=== PATIENT | female | born 1930 | race Hispanic/Latino ===

== ENCOUNTER 2019-03-08 18:51 | Inpatient (IN) | payer OTHER, SELFPAY ==
[~2019-03-08 18:51] MED LIST: Calcium Chloride 1 GM/10 ML Abboject SYRINGE ONE; Esmolol 100 MG/10 ML VIAL ONE; Heparin 1,000 UNITS/ML VIAL ONE; Iopamidol 370 76% 100 ML VIAL ONE; Lidocaine 1% PF 5 ML VIAL ONE; PHENYLEPHRINE-NS 100 MCG/ML 10 ML SYRINGE ONE; PROPOFOL 200 MG/20 ML VIAL ONE; Rocuronium Bromide 10 MG/ML (10ML VIAL) ONE; Succinylcholine Chloride 20 MG/ML 10 ml SYRINGE FS ONE
[2019-03-08 19:20] LABS: #Basophils 0.1 thou/uL (0.0-0.2); #Eosinphils 0.2 thou/uL (0.0-0.7); #Lymphocytes 4.1 thou/uL (1.20-3.40); #Monocytes 0.8 thou/uL (0.11-0.59); #Neutrophils 13.4 thou/uL (1.40-6.50); %Basophils 0.8 % (0.0-1.0); %Eosinophils 0.8 % (0.0-10.0); %Monocytes 4.3 % (0.0-10.0); %Neutrophils 72.2 % (42.0-75.0); Hemoglobin 13.9 g/dL (12.0-16.0); Mean Corpuscular HGB CONC 33.3 g/dL (32.0-36.0); Mean Corpuscular Hemoglobin 30.8 pg (27.0-31.0); Mean Corpuscular Volume 92.5 fL (78.0-98.0); Mean Platelet Volume 7.9 fL (7.4-10.4); Platelet Count 216 thou/uL (130-400); Red Blood Cell (RBC) Count 4.52 mill/uL (4.20-5.40); White Blood Cell (WBC) Count 18.6 thou/uL (4.8-10.8)
[2019-03-08 19:21] LABS: PTT 24.9 SEC (22.9-36.1)
[2019-03-08 19:22] LABS: Prothrombin Time 13.6 SEC (12.0-14.7)
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
[2019-03-08 19:28] LABS: ALT (SGPT) 46 U/L (8-55); AST (SGOT) 61 U/L (5-34); Albumin 4.2 g/dL (3.4-4.8); Alkaline Phosphatase 90 U/L (40-110); Anion Gap 16 mmol/L (10-20); BUN (Urea Nitrogen) 14 mg/dL (9.8-20.1); Bilirubin, Total 0.4 mg/dL (0.2-1.2); Calc. Creatinine Clearance 0 mL/min (70-130); Calcium 9.2 mg/dL (7.8-10.44); Carbon Dioxide 22 mmol/L (23-31); Chloride 106 mmol/L (98-107); Estimated GFR-MDRD 61; Globulin 2.5 g/dL (2.4-3.5); Potassium 3.2 mmol/L (3.5-5.1); Protein, Total 6.7 g/dL (6.0-8.3); Sodium 141 mmol/L (136-145)
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
[2019-03-08 19:33] LABS: Glucose 177 mg/dL (83-110)
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
[2019-03-08] MEDS ORDERED: Morphine 4 MG/ML VIAL ONE (19:56)
[2019-03-08] MEDS ORDERED: Ondansetron PF 4 MG/2 ML Vial ONE (19:56)
[2019-03-08] MEDS ORDERED: Fentanyl 100 MCG/2 ML VIAL ONE (20:01)
[2019-03-08] MEDS ORDERED: Phenylephrine HCL 10 MG/ML VIAL ONE (20:02)
[2019-03-08 20:31] LABS: Bacteria/HPF None Seen HPF (None Seen); Bilirubin Negative (Negative); Blood, Urine 3+ (Negative); Clarity Clear (Clear); Glucose, Urine (Dipstick) Normal (Negative); Leukocyte Negative Leu/uL (Negative); Nitrite Negative (Negative); Protein, Urine (Dipstick) 30 mg/dL (Neg-Trace); RBC/HPF Greater than 50 HPF (0-3); Squamous Epithelial None Seen HPF (0-3); Urobilinogen Normal mg/dL (Less than 2)
[2019-03-08] MEDS ORDERED: Ondansetron HCl/PF 4 MG/2 ML Vial IVP PRN (20:32)
[2019-03-08] MEDS ORDERED: Sodium Bicarb 50 MEQ/50 ML VIAL ONE (20:48)
[2019-03-08] MEDS ORDERED: Midazolam HCl 2 mg/2 ml Vial ONE (22:11)
[2019-03-08] MEDS ORDERED: Ventilator Sedation Protocol 1 EACH FS ONE (22:50)
[2019-03-08] MEDS ORDERED: D5 1/2 NS w/20 mEq KCL 1,000 ML IV SCH (22:53)
[2019-03-08] MEDS ORDERED: Lorazepam 2 MG/ML VIAL SLOW IVP PRN ×2 (22:53→22:56)
[2019-03-08] MEDS ORDERED: Dextrose 50% Abboject 50 ML SYRINGE SLOW IVP PRN (22:53)
[2019-03-08] MEDS ORDERED: Dextrose 5% in Water 1,000 ML IV PRN (22:53)
[2019-03-08] MEDS ORDERED: fentaNYL Citrate/PF 2,000 MCG in Sodium Chloride 0.9% 60 ML IV SCH (22:56)
[2019-03-08] MEDS ORDERED: Propofol BOLUS 1,000 MG/100 ML VIAL IV PRN (22:56)
[2019-03-08] MEDS ORDERED: DISCONTINUE PREVIOUS NARCOTIC PAIN MEDICATIONS AND BENZODIAZEPINES FS SCH (22:56)
[2019-03-08] MEDS ORDERED: Propofol 1,000 MG/100 ML VIAL IV PRN (22:56)
[2019-03-08] MEDS ORDERED: Fentanyl BOLUS 250 ML IVPB PRN (22:56)
--- NOTE | 2019-03-08 23:06 | RAD ---
EXAM: Single view of the chest HISTORY: Postoperative x-ray after diaphragmatic rupture repair COMPARISON: 03/08/2019 at 6:56 PM FINDINGS: Single view of the chest shows a normal sized cardiomediastinal silhouette. An endotrachea l tube is seen with its tip at the lower border of the clavicles. An NG tube is seen in the stomach. A surgical drain is seen along the left hemidiaphragm. There is been reduction of the hernia eladia contents in the left thoracic cavity below the diaphragm. There may be an area of airspace opacity in the left chest which may represent atelectasis or a pulmonary contusion. No pneumothorax i s appreciated. IMPRESSION: 1. Appropriate position of lines and tubes 2. Possible left pulmonary contusion
[2019-03-08 23:15] LABS: Actual Bicarbonate (HCO3a) 18.2 mEq/L (22-28); CO2 Tension 35.2 mmHg (35.0-45.0); Calcium, Ionized 1.22 mmol/L (1.12-1.30); Carboxyhemoglobin (COHb) 0.5 gm% (0.0-3.0); Hemoglobin (Hb) 9.3 g/dL (12.0-16.0); Potassium - ABG Lab 2.93 mmol/L (3.70-5.30); pH, Arterial 7.33 (7.35-7.45)
[2019-03-08 23:16] LABS: Puncture Site ALINE
--- NOTE | 2019-03-08 23:24 | RAD ---
EXAM: Single view of the chest HISTORY: Central line placement COMPARISON: 03/08/2019 FINDINGS: Single view of the chest shows a normal sized cardiomediastinal silhouette. A left subclav ria central venous catheter seen with its tip in the superior vena cava. The other lines and tubes are unchanged in position. No pneumothorax is seen. There has been improvement in the airspace opaci ty in the left mid thorax. The bones are unremarkable. IMPRESSION: Status post central line placement without evidence of complication.
[2019-03-08 23:25] LABS: #Lymphocytes 0.6 thou/uL (1.20-3.40); #Monocytes 0.7 thou/uL (0.11-0.59); #Neutrophils 10.5 thou/uL (1.40-6.50); %Basophils 0.3 % (0.0-1.0); %Eosinophils 0.3 % (0.0-10.0); %Lymphocytes 5.1 % (21.0-51.0); %Monocytes 6.2 % (0.0-10.0); %Neutrophils 88.2 % (42.0-75.0); Hemoglobin 9.1 g/dL (12.0-16.0); Mean Corpuscular HGB CONC 33.7 g/dL (32.0-36.0); Mean Corpuscular Hemoglobin 31.5 pg (27.0-31.0); Mean Corpuscular Volume 93.4 fL (78.0-98.0); Mean Platelet Volume 7.8 fL (7.4-10.4); Platelet Count 155 thou/uL (130-400); RBC Distribution Width 11.7 % (11.5-14.5); Red Blood Cell (RBC) Count 2.88 mill/uL (4.20-5.40); White Blood Cell (WBC) Count 11.9 thou/uL (4.8-10.8)
[2019-03-08] MEDS ORDERED: Norepinephrine 8 MG in Dextrose 5% in Water 242 ML IVPB PRN (23:27)
[2019-03-08 23:52] LABS: Anion Gap 15 mmol/L (10-20); BUN (Urea Nitrogen) 12 mg/dL (9.8-20.1); Calc. Creatinine Clearance 62 mL/min (70-130); Calcium 8.5 mg/dL (7.8-10.44); Carbon Dioxide 19 mmol/L (23-31); Chloride 112 mmol/L (98-107); Estimated GFR-MDRD 79; Glucose 211 mg/dL (83-110); Sodium 143 mmol/L (136-145)
[2019-03-09] MEDS ORDERED: Potassium Chloride 20 MEQ in Premix Bag 1 BAG IVPB SCH (00:30)
[2019-03-09] MEDS: Potassium Chloride 20 MEQ in Lactated Ringer's 1,000 ML IV SCH ×3 (01:36→19:15)
[2019-03-09] MEDS: Acetaminophen 1,000 MG in Premix Bag 1 BAG IVPB SCH ×3 (01:40→18:13)
[2019-03-09] MEDS ORDERED: Sodium Chloride 0.9% 500 ML IV SCH (02:00)
[2019-03-09 02:26] LABS: Hemoglobin 10.4 g/dL (12.0-16.0); Platelet Count 130 thou/uL (130-400)
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
[2019-03-09 05:09] LABS: Phosphorus 3.7 mg/dL (2.3-4.7)
[2019-03-09 05:11] LABS: Anion Gap 17 mmol/L (10-20); BUN (Urea Nitrogen) 12 mg/dL (9.8-20.1); Calc. Creatinine Clearance 56 mL/min (70-130); Calcium 7.7 mg/dL (7.8-10.44); Carbon Dioxide 17 mmol/L (23-31); Chloride 112 mmol/L (98-107); Estimated GFR-MDRD 70; Glucose 217 mg/dL (83-110); Lipase 135 U/L (8-78); Magnesium 1.5 mg/dL (1.6-2.6); Potassium 3.2 mmol/L (3.5-5.1); Sodium 143 mmol/L (136-145)
[2019-03-09 05:14] LABS: Band 24 % (5-11); Hemoglobin 11.3 g/dL (12.0-16.0); Hypochromia SLIGHT = 6-15 cells (100X) (0-5/hpf); Lymphocytes 3 % (21-51); MDiff Complete? YES; Mean Corpuscular HGB CONC 33.8 g/dL (32.0-36.0); Mean Corpuscular Volume 91.7 fL (78.0-98.0); Mean Platelet Volume 8.1 fL (7.4-10.4); Monocytes 4 % (0-10); Neutrophil 69 % (42-75); Platelet Count 131 thou/uL (130-400); Platelet Morphology Comment Appears Adequate; RBC Distribution Width 12.6 % (11.5-14.5); Red Blood Cell (RBC) Count 3.66 mill/uL (4.20-5.40); White Blood Cell (WBC) Count 15.2 thou/uL (4.8-10.8)
[2019-03-09 06:44] LABS: Actual Bicarbonate (HCO3a) 16.5 mEq/L (22-28); Base Excess (BEa) -9.9 mEq/L (-2.0 to +3.0); CO2 Tension 38.1 mmHg (35.0-45.0); Calcium, Ionized 1.11 mmol/L (1.12-1.30); Carboxyhemoglobin (COHb) 0.3 gm% (0.0-3.0); Hemoglobin (Hb) 9.9 g/dL (12.0-16.0); O2 Tension (PaO2) 92.1 mmHg (> 60.0)
[2019-03-09 06:51] LABS: pH, Arterial 7.25 (7.35-7.45)
[2019-03-09 06:52] LABS: Puncture Site ALINE
[2019-03-09 07:00] LABS: ALV-art Gradient 181.125 (0-20)
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
--- NOTE | 2019-03-09 08:09 | OP ---
DATE OF PROCEDURE: 03/08/2019 PREOPERATIVE DIAGNOSIS: Hemodynamic instability. POSTOPERATIVE DIAGNOSIS: Hemodynamic instability. OPERATION PERFORMED: Placement of left subclavian triple-lumen central line. ANESTHESIA: None. DESCRIPTION OF PROCEDURE: Left upper chest was prepped with ChloraPrep, draped in sterile fashion. Large gauge needle was passed under the clavicle in subclavian vein on the initial pass. Guidewire passed through the needle. Needle was removed, skin was incised, tract was dilated, and 7-[place] triple-lumen catheter was passed over the wire uneventfully. Each of the three lumens aspirated blood freely and was flushed with heparinized saline. Catheter was secured at skin exit site with 3-0 silk suture. Sterile occlusive dressing was applied. Postprocedure chest x-ray documents good position of the catheter. Job ID: [id number]
[2019-03-09] MEDS ORDERED: Magnesium 2 GM/50 ML 4 GM in Premix Bag 1 BAG IVPB SCH (08:30)
[2019-03-09] MEDS ORDERED: Potassium Phosphate 15 MMOL in Sodium Chloride 0.9% 250 ML 100 ML IVPB SCH (08:30)
[2019-03-09 08:35] LABS: Lactic Acid 9.7 mmol/L (0.5-2.2)
[2019-03-09] MEDS ORDERED: Magnesium Sulfate 4 GM in Sodium Chloride 0.9% 250 ML 250 ML IVPB SCH (08:45)
--- NOTE | 2019-03-09 09:12 | RAD ---
PORTABLE CHEST: HISTORY: Respiratory distress. COMPARISON: Prior day's study. FINDINGS: Endotracheal and NG tubes and left subclavian line are all unchanged in position. There is some paren chymal change in the left base. Overall appearance is stable. IMPRESSION: Stable examination. POS: DARIUS
[2019-03-09] MEDS: Famotidine/PF 20 mg/2ml Vial SLOW IVP SCH ×2 (09:20→21:34)
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
[2019-03-09] MEDS: Ondansetron PF 4 MG/2 ML Vial IVP PRN ×2 (12:49→22:01)
[2019-03-09] MEDS: Morphine 2 MG/ML SYRINGE SLOW IVP PRN ×4 (13:19→22:01)
[2019-03-09 17:50] LABS: Lactic Acid 4.1 mmol/L (0.5-2.2)
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
[2019-03-09] MEDS ORDERED: FLU VACC TS2019-20(65YR UP)/PF 180 MCG/0.5 ML SYRINGE IM ONE (21:00)
[2019-03-09] MEDS ORDERED: Prevnar 13-Val Conj/PF 0.5 ML SYRINGE IM ONE (21:00)
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
[2019-03-09] MEDS ORDERED: Haloperidol Lactate 5 MG/ML VIAL SLOW IVP SCH (23:45)
[2019-03-10] MEDS: Acetaminophen 1,000 MG in Premix Bag 1 BAG IVPB SCH ×2 (01:03→23:09)
[2019-03-10] MEDS: Potassium Chloride 20 MEQ in Lactated Ringer's 1,000 ML IV SCH ×4 (01:03→23:43)
[2019-03-10] MEDS ORDERED: Fentanyl 100 MCG/2 ML VIAL SLOW IVP SCH (02:45)
[2019-03-10 05:00] LABS: Band 29 % (5-11); Hemoglobin 11.7 g/dL (12.0-16.0); Lymphocytes 6 % (21-51); MDiff Complete? YES; Mean Corpuscular HGB CONC 34.7 g/dL (32.0-36.0); Mean Corpuscular Hemoglobin 31.2 pg (27.0-31.0); Mean Platelet Volume 9.6 fL (7.4-10.4); Monocytes 2 % (0-10); Neutrophil 63 % (42-75); Platelet Count 89 thou/uL (130-400); Platelet Morphology Comment Appears Decreased; RBC Distribution Width 13.5 % (11.5-14.5); Red Blood Cell (RBC) Count 3.74 mill/uL (4.20-5.40); White Blood Cell (WBC) Count 13.3 thou/uL (4.8-10.8)
[2019-03-10 05:05] LABS: Lactic Acid 4.1 mmol/L (0.5-2.2)
[2019-03-10 05:15] LABS: Anion Gap 12 mmol/L (10-20); BUN (Urea Nitrogen) 17 mg/dL (9.8-20.1); Calc. Creatinine Clearance 57 mL/min (70-130); Calcium 8.5 mg/dL (7.8-10.44); Carbon Dioxide 24 mmol/L (23-31); Chloride 114 mmol/L (98-107); Estimated GFR-MDRD 72; Glucose 141 mg/dL (83-110); Magnesium 2.4 mg/dL (1.6-2.6); Phosphorus 1.9 mg/dL (2.3-4.7); Potassium 3.9 mmol/L (3.5-5.1); Sodium 146 mmol/L (136-145)
[2019-03-10] MEDS ORDERED: Acetaminophen 1,000 MG in Premix Bag 1 BAG IVPB SCH (06:00)
[2019-03-10] MEDS ORDERED: Potassium Phosphate 30 MMOL in Sodium Chloride 0.9% 500 ML IVPB SCH (06:30)
[2019-03-10] MEDS ORDERED: traMADol HCl 50 MG TAB PO PRN ×2 (08:33)
[2019-03-10] MEDS ORDERED: Lorazepam 2 MG/ML VIAL SLOW IVP PRN (08:35)
[2019-03-10] MEDS ORDERED: Lorazepam 2 MG/ML VIAL ONE (08:37)
[2019-03-10] MEDS ORDERED: Famotidine 20 MG TAB PO SCH (09:00)
--- NOTE | 2019-03-10 09:06 | RAD ---
Exam: Chest one view HISTORY:Respiratory distress. Comparison: 03/09/2019 FINDINGS: Lines and tubes: Interval removal endotracheal and nasogastric tube. Stable left-sided central venous catheter. Cardiac silhouette: Normal Aorta: Atherosclerosis Pulmonary vessels: Slightly prominent Costophrenic angles: Clear LUNGS: Patchy interstitial and alveolar opacities in the lung parenchyma. Left upper lobe is adequate ly aerated. Pneumothorax: None Osseous abnormalities: None IMPRESSION: Patchy interstitial and alveolar opacities in the lung parenchyma.
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
[2019-03-10] MEDS: Fentanyl 100 MCG/2 ML VIAL SLOW IVP PRN ×3 (10:50→21:20)
[2019-03-10 11:10] LABS: Actual Bicarbonate (HCO3a) 16.3 mEq/L (22-28); Base Excess (BEa) -8.1 mEq/L (-2.0 to +3.0); Calcium, Ionized 1.16 mmol/L (1.12-1.30); Carboxyhemoglobin (COHb) 0.7 gm% (0.0-3.0); Hemoglobin (Hb) 11.1 g/dL (12.0-16.0); O2 Tension (PaO2) 65.8 mmHg (> 60.0); Potassium - ABG Lab 3.98 mmol/L (3.70-5.30); pH, Arterial 7.35 (7.35-7.45)
[2019-03-10 11:11] LABS: Puncture Site RRA
[2019-03-10] MEDS: Lorazepam 2 MG/ML VIAL SLOW IVP SCH ×3 (11:50→23:10)
[2019-03-10] MEDS: Haloperidol Lactate 5 MG/ML VIAL SLOW IVP SCH ×2 (11:50→18:41)
[2019-03-10] MEDS: Cefepime 1 GM in Sodium Chloride 0.9% 100 ML IVPB SCH ×2 (12:20→21:21)
[2019-03-10] MEDS: Acetaminophen 500 MG TAB PO SCH ×2 (12:23→19:24)
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
[2019-03-10] MEDS: Famotidine/PF 20 mg/2ml Vial SLOW IVP SCH (21:27)
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
[2019-03-11] MEDS: Haloperidol Lactate 5 MG/ML VIAL SLOW IVP SCH ×2 (00:17→05:13)
[2019-03-11] MEDS ORDERED: Amiodarone 150 MG, Admixture Fee 1 EACH in Dextrose 5% in Water 100 ML IVPB SCH (00:30)
[2019-03-11] MEDS ORDERED: Amiodarone 450 MG, Admixture Fee 1 EACH in Dextrose 5% in Water 250 ML IVPB SCH (00:40)
[2019-03-11] MEDS: Fentanyl 100 MCG/2 ML VIAL SLOW IVP PRN ×6 (02:27→23:51)
[2019-03-11] MEDS: Acetaminophen 1,000 MG in Premix Bag 1 BAG IVPB SCH ×4 (05:13→23:00)
[2019-03-11] MEDS: Lorazepam 2 MG/ML VIAL SLOW IVP SCH ×4 (05:13→23:01)
[2019-03-11 06:10] LABS: Band 12 % (5-11); Hemoglobin 10.9 g/dL (12.0-16.0); Hypochromia SLIGHT = 6-15 cells (100X) (0-5/hpf); Lymphocytes 3 % (21-51); MDiff Complete? YES; Mean Corpuscular HGB CONC 32.7 g/dL (32.0-36.0); Mean Corpuscular Hemoglobin 29.9 pg (27.0-31.0); Mean Corpuscular Volume 91.5 fL (78.0-98.0); Mean Platelet Volume 9.6 fL (7.4-10.4); Monocytes 4 % (0-10); Neutrophil 81 % (42-75); Platelet Count 87 thou/uL (130-400); Platelet Morphology Comment Appears Decreased; RBC Distribution Width 13.6 % (11.5-14.5); Red Blood Cell (RBC) Count 3.65 mill/uL (4.20-5.40); White Blood Cell (WBC) Count 11.5 thou/uL (4.8-10.8)
[2019-03-11 06:15] LABS: Anion Gap 14 mmol/L (10-20); BUN (Urea Nitrogen) 19 mg/dL (9.8-20.1); Calc. Creatinine Clearance 56 mL/min (70-130); Calcium 8.3 mg/dL (7.8-10.44); Carbon Dioxide 24 mmol/L (23-31); Chloride 113 mmol/L (98-107); Estimated GFR-MDRD 71; Glucose 106 mg/dL (83-110); Magnesium 2.3 mg/dL (1.6-2.6); Phosphorus 2.6 mg/dL (2.3-4.7); Potassium 4.2 mmol/L (3.5-5.1); Sodium 147 mmol/L (136-145)
[2019-03-11] MEDS ORDERED: Albumin 25% 25 GM/100 ML BOT IVPB SCH (08:29)
[2019-03-11] MEDS ORDERED: Haloperidol Lactate 5 MG/ML VIAL SLOW IVP PRN (09:15)
[2019-03-11] MEDS: Enoxaparin Sodium 40 MG/0.4 ML SYRINGE SC SCH ×2 (09:51→09:52)
--- NOTE | 2019-03-11 09:51 | RAD ---
CHEST 1 VIEW: Date: 03/11/19 COMPARISON: 03/10/19. HISTORY: Ventilated patient. Respiratory distress. FINDINGS: Stable left-sided vascular catheter. Stable cardiac silhouette. There is atherosclerosis of aorta. Pe rsistent interstitial and alveolar infiltrates. Small left-sided pleural effusion. No pneumothorax. IMPRESSION: No significant interval change. POS: [facility]
[2019-03-11] MEDS: Famotidine/PF 20 mg/2ml Vial SLOW IVP SCH ×2 (09:54→20:19)
[2019-03-11] MEDS: Lactated Ringer's 1,000 ML IV SCH ×2 (09:56→20:01)
[2019-03-11] MEDS: Cefepime 1 GM in Sodium Chloride 0.9% 100 ML IVPB SCH ×2 (10:09→21:53)
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
--- NOTE | 2019-03-11 11:01 | PRG ---
DATE OF SERVICE: 03/11/2019 SUBJECTIVE: Ms. Alejo Najera has been on Precedex and was less agitated. Early this morning, it was weaned because her pressures dropped. She breathes very normally when she is on the Precedex, but when she wakes up, she becomes more excitable, becomes more tachypneic. She was on BiPAP overnight. Her fluids were decreased yesterday and anticipation of starting more oral intake. However, that was not possible given the amount of her agitation. OBJECTIVE: VITAL SIGNS: She is afebrile. Her pulse is 101. Her blood pressure is 157/94. Pressures were low earlier this morning into the 60s systolic. : Urine output is adequate, was 679 to the last shift. MIREYA drain is minimal serosanguineous at 60. CHEST: Bilateral coarse breath sounds. HEART: Regular rate. ABDOMEN: Soft. Her dressing is changed. Her midline incision is healing well. The laura are in place. DIAGNOSTIC DATA: Chest x-ray shows mild interstitial alveolar markings. No pneumothorax. No significant effusion. 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 PLAN: We will start IV fluids back given that she is not able to take much by mouth. We will have to discuss nutrition options in the next few days; if not improved, enough to start her on oral intake. Job ID: [id number]
--- NOTE | 2019-03-11 17:21 | EKG ---
Test Reason : STAT Blood Pressure : / mmHG Vent. Rate : 128 BPM Atrial Rate : 129 BPM P-R Int : 000 ms QRS Dur : 122 ms QT Int : 386 ms P-R-T Axes : 000 -59 050 degrees QTc Int : 563 ms Atrial fibrillation with rapid ventricular response Right bundle branch block Left anterior fascicular block Bifascicular block Abnormal ECG Confirmed by DR. Юлия ALEGRIA (3) on 03/11/2019 5:20:41 PM Referred By: KEISHA Confirmed By:DR. Юлия ALEGRIA
[2019-03-11] MEDS: methylPREDNISolone Sod Succ 40 MG VIAL IVP SCH (20:19)
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
[2019-03-12 05:42] LABS: Anion Gap 17 mmol/L (10-20); BUN (Urea Nitrogen) 13 mg/dL (9.8-20.1); Calc. Creatinine Clearance 75 mL/min (70-130); Calcium 8.1 mg/dL (7.8-10.44); Carbon Dioxide 21 mmol/L (23-31); Chloride 108 mmol/L (98-107); Estimated GFR-MDRD Greater than 90; Glucose 125 mg/dL (83-110); Magnesium 1.9 mg/dL (1.6-2.6); Phosphorus 1.6 mg/dL (2.3-4.7); Potassium 2.8 mmol/L (3.5-5.1); Sodium 143 mmol/L (136-145)
[2019-03-12 05:49] LABS: Band 5 % (5-11); Hemoglobin 10.6 g/dL (12.0-16.0); Lymphocytes 4 % (21-51); MDiff Complete? YES; Mean Corpuscular HGB CONC 32.9 g/dL (32.0-36.0); Mean Corpuscular Hemoglobin 29.9 pg (27.0-31.0); Mean Corpuscular Volume 90.8 fL (78.0-98.0); Mean Platelet Volume 9.4 fL (7.4-10.4); Monocytes 3 % (0-10); Neutrophil 88 % (42-75); Platelet Count 94 thou/uL (130-400); Platelet Morphology Comment Appears Decreased; RBC Distribution Width 13.2 % (11.5-14.5); Red Blood Cell (RBC) Count 3.55 mill/uL (4.20-5.40); White Blood Cell (WBC) Count 9.7 thou/uL (4.8-10.8)
[2019-03-12] MEDS ORDERED: Potassium Phosphate 44 MMOL in Sodium Chloride 0.9% 500 ML IVPB SCH (06:00)
[2019-03-12] MEDS: Acetaminophen 1,000 MG in Premix Bag 1 BAG IVPB SCH ×4 (06:02→23:09)
[2019-03-12] MEDS: Lorazepam 2 MG/ML VIAL SLOW IVP SCH ×4 (06:03→23:10)
[2019-03-12] MEDS ORDERED: Potassium Phosphate 30 MMOL in Sodium Chloride 0.9% 500 ML IVPB SCH (06:45)
[2019-03-12] MEDS ORDERED: Magnesium 2 GM/50 ML 2 GM in Premix Bag 1 BAG IVPB SCH (08:30)
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
[2019-03-12] MEDS: Fentanyl 100 MCG/2 ML VIAL SLOW IVP PRN (08:39)
[2019-03-12] MEDS: methylPREDNISolone Sod Succ 40 MG VIAL IVP SCH ×2 (08:41→20:56)
[2019-03-12] MEDS: Famotidine/PF 20 mg/2ml Vial SLOW IVP SCH ×2 (08:41→20:56)
[2019-03-12] MEDS: Enoxaparin Sodium 40 MG/0.4 ML SYRINGE SC SCH (08:41)
[2019-03-12] MEDS: Lactated Ringer's 1,000 ML IV SCH ×2 (08:41→16:13)
[2019-03-12] MEDS: Haloperidol Lactate 5 MG/ML VIAL SLOW IVP PRN (08:59)
--- NOTE | 2019-03-12 09:22 | RAD ---
PORTABLE CHEST: HISTORY: Respiratory distress. COMPARISON: Prior day's study. FINDINGS: Left subclavian line remains unchanged in position. Heart size appears slightly enlarged. Pulmonary vessels remain engorged with increased parahilar lung markings. IMPRESSION: Stable chest. POS: OFF
--- NOTE | 2019-03-12 11:19 | CT ---
CT Abdomen Pelvis W Con: 03/12/2019 8:27 AM CLINICAL INFORMATION: Left diaphragmatic rupture repair COMPARISON: 03/08/2019 TECHNIQUE: Multiple contiguous axial images were obtained and a CT of the abdomen and pelvis with IV contrast. Oral contrast was administered. Coronal and sagittal reformats were performed. FINDINGS: Lower Chest: Small left pleural effusion. Bibasilar atelectasis. Abdomen: Liver: Stable cysts in the liver. Diffuse fatty infiltration of the liver. Bile Ducts: Normal caliber. Gallbladder: Removed Pancreas: Stranding changes are seen adjacent to the tail of the pancreas in the region of the surgic al drain. Spleen: Removed Adrenals: within normal limits. Kidneys: Stable subcentimeter hypodensity in the right kidney likely represents a cyst. Pelvis: Reproductive Organs: No pelvic masses. Ureters: within normal limits. Bladder: Salamanca catheter decompresses the bladder. Peritoneum: No ascites or free air, no fluid collection. Bowel: There is slight prominence of the small bowel loops which may be secondary to postoperative il eus. There is decompression of the colon. Scattered diverticula in the colon. NG tube located in the stomach. Mesentery and Retroperitoneum: No enlarged mesenteric or retroperitoneal lymph nodes. Vessels: Atherosclerotic calcifications. Abdominal Wall: within normal limits. Bones: Degenerative changes in the spine. IMPRESSION: 1. There is stranding changes of the pancreatic tail which may represent focal pancreatitis. This is in the region of the surgical drain and a fistula from the tail the pancreas to the drain is a possibility. The drain output could be tested for amylase/lipase. 2. Postsurgical change from diaphragmatic repair and splenectomy. 3. Hepatic and renal cysts 4. Diverticulosis 5. Fatty liver 6. Prominent small bowel loops may represent postoperative ileus.
[2019-03-12] MEDS: Cefepime 1 GM in Sodium Chloride 0.9% 100 ML IVPB SCH ×2 (11:24→21:01)
[2019-03-12] MEDS ORDERED: Acetaminophen 650 MG/20.3 ML UDCUP PER TUBE SCH (12:00)
[2019-03-12] MEDS ORDERED: traMADol HCl 50 MG TAB PER TUBE SCH (12:00)
[2019-03-12] MEDS ORDERED: traMADol HCl 50 MG TAB PO PRN (12:09)
[2019-03-12 12:15] LABS: Anion Gap 17 mmol/L (10-20); BUN (Urea Nitrogen) 13 mg/dL (9.8-20.1); Calc. Creatinine Clearance 79 mL/min (70-130); Calcium 7.3 mg/dL (7.8-10.44); Carbon Dioxide 15 mmol/L (23-31); Chloride 109 mmol/L (98-107); Estimated GFR-MDRD Greater than 90; Glucose 139 mg/dL (83-110); Phosphorus 3.7 mg/dL (2.3-4.7); Potassium 3.4 mmol/L (3.5-5.1); Sodium 138 mmol/L (136-145)
[2019-03-12] MEDS ORDERED: Ibuprofen 100 MG/5 ML UDCUP PER TUBE SCH (14:00)
[2019-03-12] MEDS ORDERED: Iopamidol 370 76% 50 ML VIAL FS ONE (16:16)
[2019-03-12] MEDS ORDERED: Iopamidol-370 76% 500 ML 1 ML ONE (16:17)
[2019-03-13] MEDS: Fentanyl 100 MCG/2 ML VIAL SLOW IVP PRN ×6 (00:04→22:43)
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
[2019-03-13] MEDS: Lactated Ringer's 1,000 ML IV SCH (04:17)
[2019-03-13 04:44] LABS: Band 6 % (5-11); Hemoglobin 10.4 g/dL (12.0-16.0); Lymphocytes 3 % (21-51); MDiff Complete? YES; Mean Corpuscular HGB CONC 33.1 g/dL (32.0-36.0); Mean Corpuscular Hemoglobin 29.7 pg (27.0-31.0); Mean Corpuscular Volume 89.9 fL (78.0-98.0); Mean Platelet Volume 9.1 fL (7.4-10.4); Monocytes 5 % (0-10); Neutrophil 86 % (42-75); Nucleated RBC 3 % (0); Platelet Count 111 thou/uL (130-400); Platelet Morphology Comment Appears Decreased; RBC Distribution Width 13.1 % (11.5-14.5); Red Blood Cell (RBC) Count 3.48 mill/uL (4.20-5.40)
[2019-03-13 04:47] LABS: Anion Gap 11 mmol/L (10-20); BUN (Urea Nitrogen) 11 mg/dL (9.8-20.1); Calc. Creatinine Clearance 82 mL/min (70-130); Calcium 8.2 mg/dL (7.8-10.44); Carbon Dioxide 26 mmol/L (23-31); Chloride 108 mmol/L (98-107); Estimated GFR-MDRD Greater than 90; Glucose 152 mg/dL (83-110); Magnesium 2.3 mg/dL (1.6-2.6); Phosphorus 1.3 mg/dL (2.3-4.7); Potassium 2.8 mmol/L (3.5-5.1); Sodium 142 mmol/L (136-145)
[2019-03-13] MEDS ORDERED: Potassium Phosphate 30 MMOL in Sodium Chloride 0.9% 500 ML IVPB SCH (05:00)
[2019-03-13] MEDS: Acetaminophen 1,000 MG in Premix Bag 1 BAG IVPB SCH ×3 (05:08→18:23)
[2019-03-13] MEDS: Lorazepam 2 MG/ML VIAL SLOW IVP SCH ×4 (05:15→23:12)
[2019-03-13] MEDS: Enoxaparin Sodium 40 MG/0.4 ML SYRINGE SC SCH (07:57)
[2019-03-13] MEDS: Famotidine/PF 20 mg/2ml Vial SLOW IVP SCH ×2 (07:57→21:20)
[2019-03-13] MEDS: methylPREDNISolone Sod Succ 40 MG VIAL IVP SCH (07:57)
[2019-03-13] MEDS: Cefepime 1 GM in Sodium Chloride 0.9% 100 ML IVPB SCH ×2 (08:44→21:19)
[2019-03-13] MEDS: Haloperidol Lactate 5 MG/ML VIAL SLOW IVP PRN (08:44)
[2019-03-13] MEDS ORDERED: Activase 2 MG VIAL CATH SCH ×2 (08:45→09:30)
[2019-03-13] MEDS ORDERED: Sterile Water 10 ML VIAL IVP SCH (09:30)
[2019-03-13] MEDS ORDERED: Potassium Chloride 40 MEQ in Premix Bag 1 BAG IVPB SCH (11:30)
--- NOTE | 2019-03-13 12:01 | PRG ---
DATE OF SERVICE: 03/13/2019 INTERVAL HISTORY: The patient is doing fine from respiratory standpoint. Mentation jones, she is quite agitated. She is thrashing about pulling on lines and tubes. As such, she is restrained for own safety. Otherwise, there has been no change to her condition. OBJECTIVE: VITAL SIGNS: Afebrile, pulse 119, blood pressure 156/134, respirations 29, and saturation 95% on 2 L nasal cannula. GENERAL: The patient is agitated. She is a touch somnolent. HEENT: Normocephalic and atraumatic. Sclerae white. Conjunctivae pink. Oral mucosa is moist without lesions. LUNGS: Decent air entry. There are some rhonchi present. No crackles. HEART: Normal rate and regular. ABDOMEN: Soft, nontender, and nondistended. Bowel sounds are positive. MUSCULOSKELETAL: No cyanosis or clubbing. There is no pitting in the bilateral lower extremities. Ecchymoses are present in multiple different locations throughout her body. : Salamanca catheter currently in place. NEUROLOGIC: Grossly nonfocal. She has been witnessed to move all extremities, purposefully, and with good strength. LABORATORY DATA: Sodium 142, potassium 2.8, bicarb 26. Anion gap 11. Basic metabolic profile is otherwise unremarkable. Phosphorus 1.3, magnesium 2.3. Urinalysis was previously unremarkable. Blood cultures x2 and urine culture negative. IMAGING DATA: CT of the abdomen and pelvis demonstrates stranding of the pancreatic tail, likely reflecting focal pancreatitis, status post diaphragmatic repair and splenectomy. Diverticulosis, fatty liver both noted. Postop ileus is a possibility. ASSESSMENT: 1. Acute hypoxic respiratory failure. 2. Diaphragmatic rupture, status post repair. 3. Hypokalemia. 4. Hypophosphatemia. 5. Delirium. 6. Ecchymoses about the left ankle. DISCUSSION AND PLAN: I will get an x-ray of the left ankle, making certain there are no fractures present. She will remain in the ICU until she is off the Precedex. At this point, I believe that she has an acute delirium with an agitated state. When she can tolerate p.o., we can perhaps give her some p.o. medications for this, but for the time being, she is simply getting p.r.n. Haldol and IV Precedex. Critical Care will continue to follow in this location. Salamanca catheter will be removed, and we can give her breaks from her SCDs while she is so mobile. Job ID: [id number] [facility]
--- NOTE | 2019-03-13 12:05 | RAD ---
EXAM: Left ankle 3 views: HISTORY: Swelling, ankle is cyanotic COMPARISON: None FINDINGS: Significant bony demineralization. Degenerative changes. No acute fracture or dislocation or other significant acute osseous abnormality. IMPRESSION: No significant acute process.
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
[2019-03-13] MEDS: Multivitamins, Adult 10 ML, Multitrace-5 5 ML in D15W-AA 5% with Lytes 2,000 ML IV SCH (22:42)
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
[2019-03-14] MEDS: Acetaminophen 1,000 MG in Premix Bag 1 BAG IVPB SCH ×5 (00:41→23:34)
[2019-03-14] MEDS: Fentanyl 100 MCG/2 ML VIAL SLOW IVP PRN (04:47)
[2019-03-14 05:37] LABS: Lipase 390 U/L (8-78)
[2019-03-14 05:41] LABS: ALT (SGPT) 60 U/L (8-55); AST (SGOT) 50 U/L (5-34); Albumin 3.3 g/dL (3.4-4.8); Alkaline Phosphatase 63 U/L (40-110); Anion Gap 13 mmol/L (10-20); BUN (Urea Nitrogen) 14 mg/dL (9.8-20.1); Bilirubin, Total 2.1 mg/dL (0.2-1.2); Calc. Creatinine Clearance 66 mL/min (70-130); Calcium 7.8 mg/dL (7.8-10.44); Carbon Dioxide 25 mmol/L (23-31); Chloride 108 mmol/L (98-107); Estimated GFR-MDRD Greater than 90; Globulin 1.9 g/dL (2.4-3.5); Glucose 154 mg/dL (83-110); Potassium 3.1 mmol/L (3.5-5.1); Protein, Total 5.2 g/dL (6.0-8.3); Sodium 143 mmol/L (136-145)
[2019-03-14 05:42] LABS: Phosphorus 1.4 mg/dL (2.3-4.7)
[2019-03-14] MEDS ORDERED: Sterile Water 10 ML VIAL IVP SCH (06:00)
[2019-03-14] MEDS ORDERED: Potassium Phosphate 30 MMOL in Sodium Chloride 0.9% 500 ML IVPB SCH (06:00)
[2019-03-14] MEDS ORDERED: Activase 2 MG VIAL CATH SCH (06:00)
[2019-03-14] MEDS: Lactated Ringer's 1,000 ML IV SCH (06:16)
[2019-03-14 06:54] LABS: Band 4 % (5-11); Hemoglobin 10.2 g/dL (12.0-16.0); Lymphocytes 5 % (21-51); MDiff Complete? YES; Mean Corpuscular HGB CONC 33.6 g/dL (32.0-36.0); Mean Corpuscular Hemoglobin 30.2 pg (27.0-31.0); Mean Corpuscular Volume 89.9 fL (78.0-98.0); Mean Platelet Volume 9.5 fL (7.4-10.4); Monocytes 4 % (0-10); Neutrophil 87 % (42-75); Nucleated RBC 16 % (0); Platelet Count 116 thou/uL (130-400); Platelet Morphology Comment Appears Decreased; RBC Distribution Width 13.2 % (11.5-14.5); Red Blood Cell (RBC) Count 3.38 mill/uL (4.20-5.40); White Blood Cell (WBC) Count 12.2 thou/uL (4.8-10.8)
[2019-03-14] MEDS: Lorazepam 2 MG/ML VIAL SLOW IVP SCH ×4 (07:41→23:34)
[2019-03-14] MEDS: Enoxaparin Sodium 40 MG/0.4 ML SYRINGE SC SCH (09:12)
[2019-03-14] MEDS: Famotidine/PF 20 mg/2ml Vial SLOW IVP SCH ×2 (09:13→20:58)
[2019-03-14] MEDS: Cefepime 1 GM in Sodium Chloride 0.9% 100 ML IVPB SCH ×2 (09:13→21:01)
--- NOTE | 2019-03-14 11:02 | PRG ---
DATE OF SERVICE: 03/14/2019 SUBJECTIVE: I talked to the family. The family feels like she is doing better. She seems to be more comfortable, more cooperative. OBJECTIVE: VITAL SIGNS: Her heart rate is 96, her temperature is 99, and blood pressure 127/71. ABDOMEN: Obese, soft, and mild tenderness. Her MIREYA drain has decreased from 125 to 40. : Urine output is good. The drain output does not appear to be bilious. LABORATORY DATA: Her lipase is at 390. Her bilirubin is 2.1. Her white count is 12, down from 14. 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 PLAN: Continue critical care. Job ID: [id number]
[2019-03-14] MEDS ORDERED: clonazePAM 0.5 MG TAB PO SCH ×2 (12:45→21:00)
[2019-03-14] MEDS ORDERED: Potassium Chloride 40 MEQ in Premix Bag 1 BAG IVPB SCH (12:45)
--- NOTE | 2019-03-14 12:52 | PRG ---
DATE OF SERVICE: 03/14/2019 SERVICE: Pulmonary Medicine. INTERVAL HISTORY: The patient is still encephalopathic. She is writhing about the bed. She cannot provide any additional elements of the history; however. There were no significant overnight events except for the severe agitation. Her output from the drain has decreased a little bit. PHYSICAL EXAMINATION: VITAL SIGNS: Afebrile currently. Pulse 90, blood pressure 127/71, respirations 32, and saturation 94%, currently on room air. GENERAL: The patient is awake and alert. She is agitated. HEENT: Normocephalic and atraumatic. Sclerae white. Conjunctivae pink. Oral mucosa is moist without lesions. LUNGS: Decent air entry. Dependent crackles are minimal. Rhonchi are present. Clear with cough. No wheezing. HEART: Normal rate. Regular. ABDOMEN: Soft, nontender, and nondistended. Bowel sounds are positive. MUSCULOSKELETAL: No cyanosis or clubbing. There is no pitting in the bilateral lower extremities. NEUROLOGIC: Grossly nonfocal. She is moving all 4 extremities and demonstrates good cough and gag. LABORATORY DATA: WBC 12.2, hemoglobin 10.2, and platelets 116,000 and gently uptrending. Band count is dropping. Potassium 3.1. Basic metabolic profile is otherwise unremarkable. Phosphorus 1.4 and magnesium 2.0. AST is gently downtrending, ALT is marginally elevated. Lipase 390, which is gently uptrending. Blood cultures x2 and urine culture negative to-date. IMAGING STUDIES: Ankle x-ray demonstrates no significant acute osseous abnormality. ASSESSMENT: 1. Acute hypoxic respiratory failure, improving. 2. Diaphragmatic rupture, status post repair. 3. Metabolic encephalopathy. 4. Hypokalemia. 5. Hypophosphatemia. DISCUSSION AND PLAN: We are going to initiate gentle trickle feeds. We will watch the output from the drain. If it increases significantly, we may need to back off this once again. This will give us the ability to give her some p.o. psychiatric medications to help stabilize her. Pulmonary/Critical Care will continue to follow along in this location. Job ID: [id number]
[2019-03-14] MEDS: Haloperidol Lactate 5 MG/ML VIAL SLOW IVP PRN ×2 (17:35→22:37)
[2019-03-14] MEDS: Insulin Regular 300 UNITS/3 ML VIAL SC PRN (19:28)
[2019-03-14] MEDS: Multivitamins, Adult 10 ML, Multitrace-5 5 ML in D15W-AA 5% with Lytes 2,000 ML IV SCH (22:22)
[2019-03-15 04:27] LABS: Anion Gap 12 mmol/L (10-20); BUN (Urea Nitrogen) 15 mg/dL (9.8-20.1); Calc. Creatinine Clearance 76 mL/min (70-130); Calcium 7.7 mg/dL (7.8-10.44); Carbon Dioxide 25 mmol/L (23-31); Chloride 107 mmol/L (98-107); Estimated GFR-MDRD Greater than 90; Glucose 172 mg/dL (83-110); Sodium 141 mmol/L (136-145)
[2019-03-15 04:29] LABS: Lipase 468 U/L (8-78); Magnesium 1.9 mg/dL (1.6-2.6)
[2019-03-15 04:32] LABS: Phosphorus 1.5 mg/dL (2.3-4.7); Potassium 2.9 mmol/L (3.5-5.1)
[2019-03-15 05:10] LABS: Band 11 % (5-11); Hemoglobin 11.5 g/dL (12.0-16.0); Lymphocytes 4 % (21-51); MDiff Complete? YES; Mean Corpuscular HGB CONC 33.6 g/dL (32.0-36.0); Mean Corpuscular Hemoglobin 30.4 pg (27.0-31.0); Mean Corpuscular Volume 90.4 fL (78.0-98.0); Mean Platelet Volume 9.8 fL (7.4-10.4); Monocytes 5 % (0-10); Myelocyte 1 % (0-0); Neutrophil 79 % (42-75); Nucleated RBC 12 % (0); Platelet Count 138 thou/uL (130-400); RBC Distribution Width 13.3 % (11.5-14.5); Red Blood Cell (RBC) Count 3.77 mill/uL (4.20-5.40); White Blood Cell (WBC) Count 13.6 thou/uL (4.8-10.8)
[2019-03-15] MEDS ORDERED: Magnesium 2 GM/50 ML 2 GM in Premix Bag 1 BAG IVPB SCH (05:15)
[2019-03-15] MEDS ORDERED: Potassium Phosphate 30 MMOL in Sodium Chloride 0.9% 250 ML 250 ML IVPB SCH (05:15)
[2019-03-15] MEDS: Lorazepam 2 MG/ML VIAL SLOW IVP SCH ×4 (05:31→23:43)
[2019-03-15] MEDS: Acetaminophen 1,000 MG in Premix Bag 1 BAG IVPB SCH ×2 (05:31→12:26)
[2019-03-15] MEDS: Insulin Regular 300 UNITS/3 ML VIAL SC PRN ×2 (05:40→13:28)
[2019-03-15] MEDS ORDERED: CCU Electrolyte Replacement 1 EACH FS SCH (07:41)
[2019-03-15] MEDS ORDERED: Magnesium 2 GM/50 ML 2 GM in Premix Bag 1 BAG IVPB PRN (07:43)
[2019-03-15] MEDS ORDERED: Magnesium Oxide 400 MG TAB PO PRN ×2 (07:43)
[2019-03-15] MEDS ORDERED: Potassium Phosphate 9 MMOL in Sodium Chloride 0.9% 100 ML IVPB PRN (07:43)
[2019-03-15] MEDS ORDERED: PHOS-NAK 1 PKT PACK PO PRN ×2 (07:43)
[2019-03-15] MEDS ORDERED: Potassium Chloride 20 MEQ TAB PO PRN (07:43)
[2019-03-15] MEDS ORDERED: Potassium Phosphate 15 MMOL in Sodium Chloride 0.9% 250 ML 250 ML IV PRN (07:43)
[2019-03-15] MEDS ORDERED: Potassium Chloride 40 MEQ in Sodium Chloride 0.9% 250 ML 250 ML IVPB PRN (07:43)
[2019-03-15] MEDS ORDERED: Potassium Phosphate 12 MMOL in Sodium Chloride 0.9% 250 ML 250 ML IV PRN (07:43)
[2019-03-15] MEDS ORDERED: CCU ELECTROLYTE REPLACEMENT PROTOCOL FS PRN (07:43)
[2019-03-15] MEDS ORDERED: Potassium Chloride 40 MEQ in Premix Bag 1 BAG IVPB PRN (07:43)
--- NOTE | 2019-03-15 08:48 | PRG ---
DATE OF SERVICE: 03/15/2019 SUBJECTIVE: Dania Dhillon is an 88-year-old female, remains in the ICU, agitated, intubated, and still confused on Precedex. OBJECTIVE: VITAL SIGNS: Pulse 111, blood pressure 137/64, saturations 100%, and respirations 38. CHEST: Decreased breath sounds. No wheezing. CARDIAC: Sinus tach. ABDOMEN: Soft. LABORATORY DATA: White count 13,000. Amylase is 468. CT of the abdomen and pelvis shows evidence of some stranding in the pancreas may be some pancreatitis traumatic. ASSESSMENT: Diaphragmatic rupture status post splenectomy, encephalopathy, aspiration pneumonia. PLAN: Continue amiodarone. Continue Maxipime, supportive care, PT. Unfortunately, she still remains very agitated in the ICU. Once again, we will try and schedule Ativan and Haldol. Try to get off the Precedex if possible. One-half hour of critical time. Job ID: [id number]
[2019-03-15 09:15] LABS: Actual Bicarbonate (HCO3a) 21.6 mEq/L (22-28); Base Excess (BEa) 0.1 mEq/L (-2.0 to +3.0); CO2 Tension 26.1 mmHg (35.0-45.0); Calcium, Ionized 1.03 mmol/L (1.12-1.30); Carboxyhemoglobin (COHb) 2.2 gm% (0.0-3.0); Hemoglobin (Hb) 12.3 g/dL (12.0-16.0); Potassium - ABG Lab 3.07 mmol/L (3.70-5.30); pH, Arterial 7.54 (7.35-7.45)
[2019-03-15] MEDS: Enoxaparin Sodium 40 MG/0.4 ML SYRINGE SC SCH (09:22)
[2019-03-15] MEDS: Famotidine/PF 20 mg/2ml Vial SLOW IVP SCH ×2 (09:23→20:33)
[2019-03-15] MEDS: Haloperidol Lactate 5 MG/ML VIAL SLOW IVP SCH ×3 (09:27→21:41)
[2019-03-15] MEDS: Cefepime 1 GM in Sodium Chloride 0.9% 100 ML IVPB SCH ×2 (09:27→22:24)
[2019-03-15 09:39] LABS: ALV-art Gradient 111.515 (0-20); O2 Tension (PaO2) 55.5 mmHg (> 60.0); Puncture Site LRA
[2019-03-15] MEDS ORDERED: Calcium Gluconate 9.2 MEQ in Sodium Chloride 0.9% 100 ML IVPB SCH (11:00)
--- NOTE | 2019-03-15 11:04 | RAD ---
Exam: Chest one view HISTORY:Congestive heart failure Comparison: 03/12/2019 FINDINGS: Cardiac silhouette:Cardiomegaly. Aorta: Atherosclerosis Lines and tubes: Stable left-sided vascular catheter. There appears to be a drainage catheter in the left upper quadrant. Midline skin laura are noted. Pulmonary vessels: Normal Costophrenic angles: Small left-sided pleural effusion. LUNGS: Stable patchy interstitial opacities with more focal opacification the left lung base. Pneumothorax: None Osseous abnormalities: None IMPRESSION: No significant interval change
[2019-03-15 11:38] VITALS: BP 128/82
[2019-03-15] MEDS: Fentanyl 100 MCG/2 ML VIAL SLOW IVP PRN ×3 (11:44→23:03)
--- NOTE | 2019-03-15 13:19 | PRG ---
DATE OF SERVICE: 03/15/2019 SUBJECTIVE: An 88-year-old female in ICU. She is 1 week status post laparotomy, stellate diaphragmatic tear repair with 2-[address] Quiles for splenectomy for bleeding. The patient over the weekend seen somewhat better mental status yesterday, although temporary. She has mostly been confused and agitated. Family is present. They stated at home, she is not baseline confusion, agitated. The patient is not responsive. She is agitated. She is slightly tachypneic and tachycardic. OBJECTIVE: VITAL SIGNS: Heart rate 116, blood pressure 155/88, respiratory rate 38. LUNGS: Clear. No wheezing. Tachypneic. CARDIAC: Sinus tachycardia. ABDOMEN: Soft. Midline wound looks healthy. EXTREMITIES: Unremarkable. ASSESSMENT AND PLAN: 1. Aspiration pneumonia. Continue intravenous antibiotics. 2. Status post laparotomy, splenectomy, diaphragmatic repair. Continue intravenous antibiotics and supportive care. 3. Malnutrition. Continue TPN. There was an attempt to place an NG tube over the weekend, but this was unsuccessful. She is very agitated and pulling at things, wanted to remove them. 4. Her hemoglobin is stable. Hemoglobin 11.5, white count 13.6, platelet count 138,000. Sodium 141, potassium 2.9, 107 chloride, BUN 15, creatinine 0.49, GFR greater than 90, glucose is 160 to 170. The patient had a bowel movement yesterday. 5. The patient remains decreased mental status. Brain CAT scan on admission was normal. Chest x-ray today reveals left pleural effusion, probably unchanged. There are no other significant findings on chest x-ray. ABGs reveal a respiratory alkalosis from her tachypnea. 6. Malnutrition. Continue TPN. Would like to provide enteral feedings, but she is agitated and likely pull out her enteral NG tube. We will continue TPN for now. 7. Order PICC line and remove central line. 8. Re-culture. 9. Continue intravenous antibiotics. 10. Status post splenectomy. Job ID: [id number]
[2019-03-15] MEDS ORDERED: Potassium Phosphate 40 MMOL in Sodium Chloride 0.9% 500 ML IVPB SCH (16:00)
--- NOTE | 2019-03-15 16:58 | EKG ---
Test Reason : Blood Pressure : / mmHG Vent. Rate : 101 BPM Atrial Rate : 101 BPM P-R Int : 112 ms QRS Dur : 122 ms QT Int : 368 ms P-R-T Axes : 047 -55 035 degrees QTc Int : 477 ms Sinus tachycardia Intraventricular conduction delay Low voltage QRS Abnormal ECG Confirmed by DR. Юлия ALEGRIA (3) on 03/15/2019 4:57:45 PM Referred By: [email or web address] Confirmed By:DR. Юлия ALEGRIA
[2019-03-15] MEDS: POTASSIUM CHLORIDE IV SCH (22:05)
[2019-03-15] MEDS: SODIUM ACETATE IV SCH (22:05)
[2019-03-15] MEDS: [UNRECOGNIZED DRUG - OTHER] IV SCH (22:05)
[2019-03-15 22:11] LABS: Bacteria/HPF None Seen HPF (None Seen); Bilirubin Negative (Negative); Blood, Urine Trace (Negative); Clarity Clear (Clear); Glucose, Urine (Dipstick) 50 mg/dL (Negative); Leukocyte Negative Leu/uL (Negative); Nitrite Negative (Negative); Protein, Urine (Dipstick) 20 mg/dL (Neg-Trace); RBC/HPF 0-3 HPF (0-3); Squamous Epithelial None Seen HPF (0-3); Urobilinogen 3 mg/dL (Less than 2); WBC/HPF 0-3 HPF (0-3)
[2019-03-15] MEDS: Multivitamins, Adult 10 ML, Multitrace-5 5 ML in D15W-AA 5% with Lytes 2,000 ML IV SCH (23:08)
[2019-03-16] MEDS: Fentanyl 100 MCG/2 ML VIAL SLOW IVP PRN ×3 (01:47→08:57)
[2019-03-16] MEDS: Haloperidol Lactate 5 MG/ML VIAL SLOW IVP SCH ×4 (03:07→22:11)
[2019-03-16 04:55] LABS: Anion Gap 12 mmol/L (10-20); BUN (Urea Nitrogen) 20 mg/dL (9.8-20.1); Calc. Creatinine Clearance 65 mL/min (70-130); Calcium 7.7 mg/dL (7.8-10.44); Carbon Dioxide 25 mmol/L (23-31); Chloride 110 mmol/L (98-107); Estimated GFR-MDRD Greater than 90; Glucose 165 mg/dL (83-110); Magnesium 2.3 mg/dL (1.6-2.6); Potassium 3.5 mmol/L (3.5-5.1); Sodium 143 mmol/L (136-145)
[2019-03-16 04:58] LABS: Phosphorus 2.5 mg/dL (2.3-4.7)
[2019-03-16] MEDS: Lorazepam 2 MG/ML VIAL SLOW IVP SCH (05:10)
[2019-03-16 05:30] LABS: Band 5 % (5-11); Hemoglobin 11.1 g/dL (12.0-16.0); Lymphocytes 7 % (21-51); MDiff Complete? YES; Mean Corpuscular HGB CONC 33.8 g/dL (32.0-36.0); Mean Corpuscular Hemoglobin 30.8 pg (27.0-31.0); Mean Corpuscular Volume 91.1 fL (78.0-98.0); Mean Platelet Volume 9.5 fL (7.4-10.4); Monocytes 2 % (0-10); Neutrophil 85 % (42-75); Nucleated RBC 10 % (0); Platelet Count 185 thou/uL (130-400); Polychromasia SLIGHT = 2-3 cells (100X) (0-2/hpf); RBC Distribution Width 13.5 % (11.5-14.5); Reactive Lymphocytes 1 % (0-10); Red Blood Cell (RBC) Count 3.62 mill/uL (4.20-5.40); White Blood Cell (WBC) Count 15.8 thou/uL (4.8-10.8)
--- NOTE | 2019-03-16 08:04 | RAD ---
EXAM: CHEST ONE VIEW HISTORY: On ventilator. COMPARISON: 03/15/2019. FINDINGS: Cardiac silhouette is magnified by projection. There is mild increase in perihilar interstitial densi ties with minimal patchy density in the right midlung zone. Pleural and parenchymal changes at the left lung base are again seen with hazy density in the left midlung zone which may be related to pleu ral fluid layering posteriorly with associated volume loss. A radiopaque drainage catheter overlies the left upper quadrant. Midline skin clips are seen in the epigastric region. There are areas of inc reased density overlying the lateral left upper quadrant which may represent ingested contrast within colonic diverticuli. Vascular calcifications are seen in thoracic aorta . Osteopenia is noted. IMPRESSION: 1. Pleural and parenchymal changes left lung base and left midlung zone which may be related to left pleural effusion and atelectasis. However, superimposed infiltrate/pneumonia cannot be entirely excluded. 2. Minimal patchy density right midlung zone. 3. Radiopaque drainage catheter overlies left upper quadrant.
[2019-03-16] MEDS ORDERED: Acthib 0.5 ML VIAL IM ONE (08:45)
[2019-03-16] MEDS ORDERED: FLU VACC TS2019-20(65YR UP)/PF 180 MCG/0.5 ML SYRINGE IM ONE (08:45)
[2019-03-16] MEDS ORDERED: Prevnar 13-Val Conj/PF 0.5 ML SYRINGE IM ONE (08:45)
[2019-03-16] MEDS ORDERED: Meningococcal Vaccine 0.5ML VIAL (MENACTRA) IM ONE (08:45)
[2019-03-16] MEDS: Cefepime 1 GM in Sodium Chloride 0.9% 100 ML IVPB SCH (08:56)
[2019-03-16] MEDS: Enoxaparin Sodium 40 MG/0.4 ML SYRINGE SC SCH (08:57)
[2019-03-16] MEDS: Famotidine/PF 20 mg/2ml Vial SLOW IVP SCH ×2 (08:57→22:11)
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
--- NOTE | 2019-03-16 10:54 | SPC ---
Ultrasound-guidedrightupper extremity PICC placement: 03/16/2019 HISTORY: TPN access FINDINGS: Informed consent obtained prior to the procedure. Right antecubital fossa prepped and draped in normal sterile fashion. Skin overlying theright basilicvein anesthetized with 1% buffered lidocaine. With direct sonographic guidance, vascular access is obtained via the right basilicvein and an 0.018in wire was advanced to the IVC, subsequently retracted to the cavoatrial junction. Intravascular length is calculated at 30 cm and of the PICC is cut accordingly. Needle is removed and replaced with a peel-away sheath. The PICC was advanced over the wire. Wire and peel-away sheath were removed. The tip of the catheter overlies the cavoatrial junction. The port flushes well and the catheter is ready for use. IMPRESSION: Successful ultrasound guided placement of a rightupper extremity PICC.
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
[2019-03-16] MEDS ORDERED: Iopamidol-370 76% 500 ML 1 ML ONE ×2 (13:19→13:23)
--- NOTE | 2019-03-16 13:22 | CT ---
Head CT without contrast 03/16/2019: COMPARISON: 03/08/2019 HISTORY: Altered mental status TECHNIQUE: Axial CT imaging at 5 mm intervals from vertex through skull base without contrast FINDINGS: There is extensive periventricular and deep white matter hypodensity suggesting stable smal l vessel disease. There is a new small subdural hematoma in the anterior medial left frontal region measuring approximately 3-4 mm in AP dimension and approximately 1.7 cm in transverse dimension, best seen on axial images 20-22. No midline shift or mass effect. No ventricular enlargement. There is mucosal thickening involving the posterior aspect of the left maxillary sinus. There is no d isplaced calvarial fracture. There is atherosclerotic calcification of the distal right vertebral artery and bilateral cavernous carotid arteries. IMPRESSION: New small left-sided anterior medial subdural hematoma. Small vessel disease. If there is clinical concern for acute infarction, brain MRI recommended. Art Raymundo made aware via phone at 1:15 PM 03/16/2019.
[2019-03-16] MEDS ORDERED: Sodium Chloride 0.9% 1,000 ML IV SCH (14:30)
[2019-03-16] MEDS: Sodium Chloride 0.9% 1,000 ML IV SCH (14:46)
[2019-03-16] MEDS: Lorazepam 2 MG/ML VIAL SLOW IVP PRN ×2 (14:46→23:45)
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
[2019-03-16] MEDS ORDERED: Calcium Gluc 4.6 MEQ/10 ML (100 MG/ML) SLOW IVP SCH (18:00)
[2019-03-16 19:08] LABS: Lactic Acid 1.4 mmol/L (0.5-2.2)
[2019-03-16] MEDS: Acetaminophen 1,000 MG in Premix Bag 1 BAG IVPB SCH ×2 (19:10→23:39)
[2019-03-16] MEDS: SODIUM ACETATE IV SCH (22:35)
[2019-03-16] MEDS: [UNRECOGNIZED DRUG - OTHER] IV SCH (22:35)
[2019-03-16] MEDS: POTASSIUM CHLORIDE IV SCH (22:35)
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
[2019-03-17 04:42] LABS: Anion Gap 7 mmol/L (10-20); BUN (Urea Nitrogen) 23 mg/dL (9.8-20.1); Calc. Creatinine Clearance 70 mL/min (70-130); Calcium 7.8 mg/dL (7.8-10.44); Carbon Dioxide 28 mmol/L (23-31); Chloride 117 mmol/L (98-107); Estimated GFR-MDRD Greater than 90; Glucose 140 mg/dL (83-110); Magnesium 2.5 mg/dL (1.6-2.6); Phosphorus 2.7 mg/dL (2.3-4.7); Potassium 3.6 mmol/L (3.5-5.1); Sodium 148 mmol/L (136-145)
[2019-03-17 05:20] LABS: Band 13 % (5-11); Eosinophils 2 % (0-10); Hemoglobin 9.7 g/dL (12.0-16.0); Lymphocytes 7 % (21-51); MDiff Complete? YES; Mean Corpuscular HGB CONC 33.1 g/dL (32.0-36.0); Mean Corpuscular Hemoglobin 30.9 pg (27.0-31.0); Mean Corpuscular Volume 93.4 fL (78.0-98.0); Mean Platelet Volume 8.7 fL (7.4-10.4); Monocytes 6 % (0-10); Myelocyte 2 % (0-0); Neutrophil 70 % (42-75); Platelet Count 232 thou/uL (130-400); RBC Distribution Width 14.1 % (11.5-14.5); Red Blood Cell (RBC) Count 3.12 mill/uL (4.20-5.40); White Blood Cell (WBC) Count 14.6 thou/uL (4.8-10.8)
[2019-03-17 05:33] VITALS: BMI 24.9
[2019-03-17] MEDS: Acetaminophen 1,000 MG in Premix Bag 1 BAG IVPB SCH ×2 (06:16→12:05)
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
[2019-03-17] MEDS ORDERED: traMADol HCl 50 MG TAB PO PRN (08:57)
[2019-03-17] MEDS ORDERED: Enoxaparin Sodium 40 MG/0.4 ML SYRINGE SC SCH (09:00)
[2019-03-17] MEDS: Famotidine/PF 20 mg/2ml Vial SLOW IVP SCH (09:38)
[2019-03-17] MEDS: Haloperidol Lactate 5 MG/ML VIAL SLOW IVP SCH ×2 (09:39→15:33)
[2019-03-17] MEDS: Lorazepam 2 MG/ML VIAL SLOW IVP PRN (09:39)
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
--- NOTE | 2019-03-17 11:24 | CT ---
Head CT without contrast 03/17/2019: COMPARISON: 03/16/2019 HISTORY: Reevaluate left-sided subdural hematoma TECHNIQUE: Axial CT imaging at 5 mm intervals from vertex through skull base without contrast FINDINGS: There is a small anteromedial left frontal subdural hematoma measuring approximately 3 mm i n AP dimension, not significantly changed when compared to the study performed 03/16/2019. No midline shift or mass effect. Stable periventricular hypodensity suggests small vessel disease. As seen on recent CT angiogram of the neck, there is abnormal widening of the atlantoaxial interspace , evidence of ligamentous injury. This results in narrowing of the contents of the central canal at the axial level of the dens. IMPRESSION: Stable subdural hematoma on the left. Evidence of ligamentous disruption at the atlantoax ial interspace with central canal compromise at the axial level of the dens. Results discussed with Mika canales 11:20 AM 03/17/2019.
[2019-03-17] MEDS: Sodium Chloride 0.9% 1,000 ML IV SCH ×2 (12:41→16:11)
[2019-03-17] MEDS ORDERED: Hydrocortisone Sod Succ/PF 100 mg/2 ml Vial IVP SCH ×2 (13:15→18:00)
[2019-03-17] MEDS ORDERED: Sodium Chloride 0.9% 500 ML IVPB SCH (16:00)
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
[2019-03-17 16:34] VITALS: TEMP 97.8
[2019-03-17] MEDS: Fentanyl 100 MCG/2 ML VIAL SLOW IVP PRN (17:47)
[2019-03-17] MEDS ORDERED: POTASSIUM CHLORIDE IV SCH (22:00)
[2019-03-17] MEDS ORDERED: SODIUM ACETATE IV SCH (22:00)
[2019-03-17] MEDS ORDERED: [UNRECOGNIZED DRUG - OTHER] IV SCH (22:00)
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
== END 2019-03-17 18:34 | disposition expired | DRG 957 ==
LOC: ERS 18:51 → EDBD 18:51 → CCU 20:24 → SDC/OP 21:05 → CCU 21:06
PROVIDERS: ADMIT Specialist; ATTEND Specialist
PROC: 0W3H0ZZ Control Bleeding in Retroperitoneum, Open Approach (ICD-10-PCS; principal; 2019-03-08)
PROC: 07BP0ZZ Excision of Spleen, Open Approach (ICD-10-PCS; 2019-03-08)
PROC: 0BQT0ZZ Repair Diaphragm, Open Approach (ICD-10-PCS; 2019-03-08)
PROC: 02HV33Z Insertion of Infusion Device into Superior Vena Cava, Percutaneous Approach (ICD-10-PCS; 2019-03-08)
PROC: 3E0436Z Introduction of Nutritional Substance into Central Vein, Percutaneous Approach (ICD-10-PCS; 2019-03-15)
PROC: 02HV33Z Insertion of Infusion Device into Superior Vena Cava, Percutaneous Approach (ICD-10-PCS; 2019-03-16)
PROC: B548ZZA Ultrasonography of Superior Vena Cava, Guidance (ICD-10-PCS; 2019-03-16)
DX: S27.808A Other injury of diaphragm, initial encounter (principal); J69.0 Pneumonitis due to inhalation of food and vomit; S36.00XA Unspecified injury of spleen, initial encounter; J96.01 Acute respiratory failure with hypoxia; K85.90 Acute pancreatitis without necrosis or infection, unspecified; G93.41 Metabolic encephalopathy; I62.00 Nontraumatic subdural hemorrhage, unspecified; R40.2122 Coma scale, eyes open, to pain, at arrival to emergency department; E87.2 Acidosis; D62 Acute posthemorrhagic anemia; S36.2 Injury of pancreas; E46 Unspecified protein-calorie malnutrition; Z51.5 Encounter for palliative care; Z66 Do not resuscitate; E87.6 Hypokalemia; E83.39 Other disorders of phosphorus metabolism; E83.42 Hypomagnesemia; K44.9 Diaphragmatic hernia without obstruction or gangrene; K86.89 Other specified diseases of pancreas; I10 Essential (primary) hypertension; S13.4XXA Sprain of ligaments of cervical spine, initial encounter; R40.2352 Coma scale, best motor response, localizes pain, at arrival to emergency department; R40.2242 Coma scale, best verbal response, confused conversation, at arrival to emergency department; S90.02XA Contusion of left ankle, initial encounter; V43.62XA Car passenger injured in collision with other type car in traffic accident, initial encounter; Y92.415 Exit ramp or entrance ramp of street or highway as the place of occurrence of the external cause; Z90.49 Acquired absence of other specified parts of digestive tract; Z68.24 Body mass index [BMI] 24.0-24.9, adult
CPT/HCPCS: 36415; 36416; 36430; 36569; 51702; 70450; 70498; 71045; 71260; 71275; 72125; 72170; 74177; 80048; 80053; 81001; 81003; 81015; 82140; 82150; 82533; 82805; 83605; 83690; 83735; 83880; 84100; 84443; 85007; 85025; 85027; 85379; 85610; 85730; 86850; 86900; 86901; 87040; 87086; 88305; 90471; 90648; 90662; 90670; 90733; 93005; 93010; 93306; 94002; 94003; 94640; 94660; 96361; 96374; 96375; 99292; A4217; C1751; G0008; G0009; G0390; J0131; J0692; J1630; J1644; J1650; J1720; J1815; J2001; J2060; J2250; J2270; J2370; J2405; J2704; J2920; J2997; J3010; J3475; J3480; J3490; J7050; J7120; J7620; L0174; P9016; P9045; P9047; Q9967; S0028